=== PATIENT | female | born 1965 | race Caucasian/White ===

== ENCOUNTER 2020-02-11 13:51 | Emergency (ER) | payer OTHER ==
[~2020-02-11] VITALS: Ht 172.7 cm; Wt 115.7 kg
[~2020-02-11 13:51] MED LIST: ATENOLOL50 MG PO; CLARITIN10 M1 PO; FLONASE16 GM NS; HYDROCHLOROTHIA25 MG PO; KETO10TA2 PO; MUCINEX D1 TAB.SR1 PO; MUCINEX DM1 TAB.SR . PO; TENORMIN50 MG; TUSSI-PRES LIQ118 ML PO
== END 2020-02-11 17:00 | disposition home or self-care (01) ==
LOC: ER 13:51
DX: J06.9 Acute upper respiratory infection, unspecified (principal)